=== PATIENT | male | born 1945 | race Caucasian/White ===

== ENCOUNTER 2016-10-07 13:46 | Outpatient (CLI) | payer MEDICARE | END 2016-10-07 13:47 | disposition home or self-care (01) | LOC: NAV LAB 13:46 | PROVIDERS: ATTEND Family Medicine | DX: Z11.59 Encounter for screening for other viral diseases (principal) | CPT/HCPCS: 86803 ==

== ENCOUNTER 2021-03-18 15:18 | Inpatient (IN) | payer MEDICARE ==
[2021-03-18] MEDS ORDERED: BETAMETHASONE 0.1% TOP PRN (21:38)
[2021-03-18] MEDS ORDERED: Enoxaparin Sodium 40 MG/0.4 ML SYRINGE SC SCH (21:45)
[2021-03-18] MEDS: oxyCODONE 5 MG TAB PO PRN (22:15)
[2021-03-18] MEDS: Enoxaparin Sodium 40 MG/0.4 ML SYRINGE SC SCH (22:18)
[2021-03-19] MEDS: Acetaminophen 500 MG TAB PO PRN ×2 (01:15→11:10)
[2021-03-19] MEDS: oxyCODONE 5 MG TAB PO PRN ×3 (04:03→20:48)
[2021-03-19 05:51] LABS: ALT (SGPT) 25 U/L (8-55); AST (SGOT) 39 U/L (5-34); Albumin 3.2 g/dL (3.4-4.8); Alkaline Phosphatase 58 U/L (40-110); Anion Gap 14 mmol/L (10-20); BUN (Urea Nitrogen) 14 mg/dL (8.4-25.7); Bilirubin, Total 0.7 mg/dL (0.2-1.2); Calc. Creatinine Clearance 110 mL/min (70-130); Carbon Dioxide 27 mmol/L (23-31); Chloride 100 mmol/L (98-107); Globulin 2.1 g/dL (2.4-3.5); Glucose 101 mg/dL (83-110); Potassium 3.7 mmol/L (3.5-5.1); Protein, Total 5.3 g/dL (5.8-8.1); Sodium 137 mmol/L (136-145)
[2021-03-19 06:06] LABS: Mean Corpuscular Hemoglobin 29.5 pg (27.0-31.0); Mean Corpuscular Volume 92.1 fL (78.0-98.0); Mean Platelet Volume 7.3 fL (7.4-10.4); Platelet Count 293 thou/uL (130-400); RBC Distribution Width 12.1 % (11.5-14.5); Red Blood Cell (RBC) Count 3.06 mill/uL (4.70-6.10); White Blood Cell (WBC) Count 8.4 thou/uL (4.8-10.8)
[2021-03-19 06:07] LABS: Anisocytosis SLIGHT = 6-15 cells (100X) (0-5/hpf); Band 6 % (5-11); Hypochromia SLIGHT = 6-15 cells (100X) (0-5/hpf); Lymphocytes 24 % (21-51); MDiff Complete? YES; Metamyelocyte 1 % (0-0); Monocytes 8 % (0-10); Neutrophil 61 % (42-75); Platelet Morphology Comment Appears Adequate
[2021-03-19] MEDS ORDERED: oxyCODONE 5 MG TAB PO SCH (06:30)
[2021-03-19] MEDS ORDERED: Losartan Potassium 50 MG TAB PO SCH (09:00)
[2021-03-19] MEDS: Atorvastatin Calcium 10 MG TAB PO SCH (09:09)
[2021-03-19] MEDS: Amlodipine 5 MG TAB PO SCH (09:09)
[2021-03-19] MEDS: Calcium Carbonate 600 MG + Vit D TAB PO SCH ×2 (09:09→16:58)
[2021-03-19] MEDS: traMADol HCl 50 MG TAB PO PRN (11:10)
[2021-03-19] MEDS: Losartan Potassium 50 MG TAB PO SCH (20:48)
[2021-03-19] MEDS ORDERED: SENNOSIDES 8.6 MG PO SCH (21:00)
[2021-03-19] MEDS ORDERED: Enoxaparin Sodium 40 MG/0.4 ML SYRINGE SC SCH (21:45)
[2021-03-19] MEDS ORDERED: Senokot S 8.6-50 MG TAB PO SCH (22:00)
[2021-03-19] MEDS: Enoxaparin Sodium 40 MG/0.4 ML SYRINGE SC SCH (22:13)
[2021-03-19] MEDS: Senokot S 8.6-50 MG TAB PO SCH (22:14)
[2021-03-20] MEDS: Amlodipine 5 MG TAB PO SCH (10:39)
[2021-03-20] MEDS: Atorvastatin Calcium 10 MG TAB PO SCH (10:39)
[2021-03-20] MEDS: Calcium Carbonate 600 MG + Vit D TAB PO SCH ×2 (10:39→16:40)
[2021-03-20] MEDS: oxyCODONE 5 MG TAB PO PRN ×2 (11:31→19:23)
[2021-03-20] MEDS: Acetaminophen 500 MG TAB PO PRN (16:40)
[2021-03-20] MEDS: traMADol HCl 50 MG TAB PO PRN (16:41)
[2021-03-20] MEDS: Enoxaparin Sodium 40 MG/0.4 ML SYRINGE SC SCH (21:03)
[2021-03-20] MEDS: Senokot S 8.6-50 MG TAB PO SCH (21:04)
[2021-03-20] MEDS: Losartan Potassium 50 MG TAB PO SCH (21:04)
[2021-03-21] MEDS: oxyCODONE 5 MG TAB PO PRN ×4 (00:25→21:27)
[2021-03-21] MEDS: Amlodipine 5 MG TAB PO SCH (09:38)
[2021-03-21] MEDS: Atorvastatin Calcium 10 MG TAB PO SCH (09:40)
[2021-03-21] MEDS: Calcium Carbonate 600 MG + Vit D TAB PO SCH ×2 (09:41→18:14)
[2021-03-21] MEDS: Milk Of Magnesia 30 ML UDCUP PO PRN (18:14)
[2021-03-21] MEDS: traMADol HCl 50 MG TAB PO PRN (20:38)
[2021-03-21] MEDS: Enoxaparin Sodium 40 MG/0.4 ML SYRINGE SC SCH (20:40)
[2021-03-21] MEDS: Losartan Potassium 50 MG TAB PO SCH (20:41)
[2021-03-21] MEDS: Senokot S 8.6-50 MG TAB PO SCH (20:41)
[2021-03-22] MEDS: oxyCODONE 5 MG TAB PO PRN ×4 (04:24→22:36)
[2021-03-22 05:30] LABS: #Basophils 0.1 thou/uL (0.0-0.2); #Eosinphils 0.3 thou/uL (0.0-0.7); #Lymphocytes 1.4 thou/uL (1.20-3.40); #Neutrophils 4.3 thou/uL (1.40-6.50); %Basophils 1.2 % (0.0-1.0); %Eosinophils 4.5 % (0.0-10.0); %Lymphocytes 19.5 % (21.0-51.0); %Monocytes 13.9 % (0.0-10.0); %Neutrophils 60.8 % (42.0-75.0); Hemoglobin 9.6 g/dL (14.0-18.0); Mean Corpuscular HGB CONC 33.3 g/dL (32.0-36.0); Mean Corpuscular Hemoglobin 30.5 pg (27.0-31.0); Mean Corpuscular Volume 91.7 fL (78.0-98.0); Mean Platelet Volume 7.2 fL (7.4-10.4); Platelet Count 393 thou/uL (130-400); RBC Distribution Width 12.6 % (11.5-14.5); Red Blood Cell (RBC) Count 3.13 mill/uL (4.70-6.10)
[2021-03-22 05:40] LABS: Anion Gap 13 mmol/L (10-20); BUN (Urea Nitrogen) 15 mg/dL (8.4-25.7); Calc. Creatinine Clearance 107 mL/min (70-130); Calcium 8.1 mg/dL (7.8-10.44); Carbon Dioxide 29 mmol/L (23-31); Chloride 100 mmol/L (98-107); Glucose 107 mg/dL (83-110); Potassium 3.9 mmol/L (3.5-5.1); Sodium 138 mmol/L (136-145)
[2021-03-22] MEDS: Amlodipine 5 MG TAB PO SCH (08:41)
[2021-03-22] MEDS: Calcium Carbonate 600 MG + Vit D TAB PO SCH ×2 (08:43→16:59)
[2021-03-22] MEDS: Atorvastatin Calcium 10 MG TAB PO SCH (08:44)
[2021-03-22] MEDS: Milk Of Magnesia 30 ML UDCUP PO PRN (08:55)
[2021-03-22] MEDS: traMADol HCl 50 MG TAB PO PRN (12:38)
[2021-03-22] MEDS: Acetaminophen 500 MG TAB PO PRN ×2 (12:39→22:37)
[2021-03-22] MEDS: Losartan Potassium 50 MG TAB PO SCH (20:52)
[2021-03-22] MEDS: Enoxaparin Sodium 40 MG/0.4 ML SYRINGE SC SCH (20:52)
[2021-03-22] MEDS: Senokot S 8.6-50 MG TAB PO SCH (20:52)
[2021-03-23] MEDS: Calcium Carbonate 600 MG + Vit D TAB PO SCH ×2 (08:51→16:52)
[2021-03-23] MEDS: Amlodipine 5 MG TAB PO SCH (08:51)
[2021-03-23] MEDS: Atorvastatin Calcium 10 MG TAB PO SCH (08:51)
[2021-03-23] MEDS: Acetaminophen 500 MG TAB PO PRN (12:10)
[2021-03-23] MEDS: oxyCODONE 5 MG TAB PO PRN ×2 (15:36→21:35)
[2021-03-23] MEDS: Losartan Potassium 50 MG TAB PO SCH (21:32)
[2021-03-23] MEDS: Enoxaparin Sodium 40 MG/0.4 ML SYRINGE SC SCH (21:32)
[2021-03-23] MEDS: Senokot S 8.6-50 MG TAB PO SCH (21:32)
[2021-03-23] MEDS: traMADol HCl 50 MG TAB PO PRN (22:53)
[2021-03-24] MEDS: oxyCODONE 5 MG TAB PO PRN ×2 (05:57→21:51)
[2021-03-24] MEDS: Calcium Carbonate 600 MG + Vit D TAB PO SCH ×2 (08:51→16:48)
[2021-03-24] MEDS: Amlodipine 5 MG TAB PO SCH (08:52)
[2021-03-24] MEDS: Atorvastatin Calcium 10 MG TAB PO SCH (08:52)
[2021-03-24] MEDS: Acetaminophen 500 MG TAB PO PRN (10:49)
[2021-03-24] MEDS ORDERED: Betamethasone Val 0.1% OINT 15 GM TUBE TOP PRN (12:00)
[2021-03-24] MEDS: traMADol HCl 50 MG TAB PO PRN (17:00)
[2021-03-24] MEDS: Senokot S 8.6-50 MG TAB PO SCH (20:59)
[2021-03-24] MEDS: Enoxaparin Sodium 40 MG/0.4 ML SYRINGE SC SCH (20:59)
[2021-03-24] MEDS: Losartan Potassium 50 MG TAB PO SCH (21:00)
[2021-03-25] MEDS: oxyCODONE 5 MG TAB PO PRN ×3 (07:23→22:54)
[2021-03-25] MEDS: Calcium Carbonate 600 MG + Vit D TAB PO SCH ×2 (08:51→16:56)
[2021-03-25] MEDS: Atorvastatin Calcium 10 MG TAB PO SCH (08:52)
[2021-03-25] MEDS: Amlodipine 5 MG TAB PO SCH (08:52)
[2021-03-25] MEDS: traMADol HCl 50 MG TAB PO PRN ×2 (12:15→23:49)
[2021-03-25] MEDS: Acetaminophen 500 MG TAB PO PRN (12:16)
[2021-03-25] MEDS: Enoxaparin Sodium 40 MG/0.4 ML SYRINGE SC SCH (21:57)
[2021-03-25] MEDS: Senokot S 8.6-50 MG TAB PO SCH (21:58)
[2021-03-25] MEDS: Losartan Potassium 50 MG TAB PO SCH (21:58)
[2021-03-26] MEDS: Calcium Carbonate 600 MG + Vit D TAB PO SCH ×2 (08:53→17:15)
[2021-03-26] MEDS: Atorvastatin Calcium 10 MG TAB PO SCH (08:53)
[2021-03-26] MEDS: Amlodipine 5 MG TAB PO SCH (08:53)
[2021-03-26] MEDS: oxyCODONE 5 MG TAB PO PRN ×3 (09:21→21:48)
[2021-03-26] MEDS: Milk Of Magnesia 30 ML UDCUP PO PRN (09:22)
[2021-03-26] MEDS: Senokot S 8.6-50 MG TAB PO SCH (21:47)
[2021-03-26] MEDS: Losartan Potassium 50 MG TAB PO SCH (21:47)
[2021-03-26] MEDS: Enoxaparin Sodium 40 MG/0.4 ML SYRINGE SC SCH (21:47)
[2021-03-27] MEDS: traMADol HCl 50 MG TAB PO PRN ×2 (00:28→23:37)
[2021-03-27] MEDS: Calcium Carbonate 600 MG + Vit D TAB PO SCH ×2 (08:32→17:19)
[2021-03-27] MEDS: Atorvastatin Calcium 10 MG TAB PO SCH (08:32)
[2021-03-27] MEDS: Amlodipine 5 MG TAB PO SCH (08:32)
[2021-03-27] MEDS: oxyCODONE 5 MG TAB PO PRN ×2 (10:20→20:17)
[2021-03-27] MEDS: Enoxaparin Sodium 40 MG/0.4 ML SYRINGE SC SCH (20:16)
[2021-03-27] MEDS: Losartan Potassium 50 MG TAB PO SCH (20:18)
[2021-03-27] MEDS: Senokot S 8.6-50 MG TAB PO SCH (20:19)
[2021-03-28] MEDS: oxyCODONE 5 MG TAB PO PRN ×2 (01:51→20:30)
[2021-03-28] MEDS: Calcium Carbonate 600 MG + Vit D TAB PO SCH ×2 (09:01→17:36)
[2021-03-28] MEDS: Atorvastatin Calcium 10 MG TAB PO SCH (09:02)
[2021-03-28] MEDS: Amlodipine 5 MG TAB PO SCH (09:03)
[2021-03-28] MEDS: traMADol HCl 50 MG TAB PO PRN ×2 (10:21→17:54)
[2021-03-28] MEDS: Acetaminophen 500 MG TAB PO PRN ×2 (10:22→17:56)
[2021-03-28] MEDS: Losartan Potassium 50 MG TAB PO SCH (20:31)
[2021-03-28] MEDS: Enoxaparin Sodium 40 MG/0.4 ML SYRINGE SC SCH (20:31)
[2021-03-28] MEDS: Senokot S 8.6-50 MG TAB PO SCH (20:31)
[2021-03-29] MEDS: oxyCODONE 5 MG TAB PO PRN ×2 (02:59→20:24)
[2021-03-29 03:29] VITALS: BMI 27.6
[2021-03-29] MEDS: Amlodipine 5 MG TAB PO SCH (08:11)
[2021-03-29] MEDS: Calcium Carbonate 600 MG + Vit D TAB PO SCH ×2 (08:11→17:34)
[2021-03-29] MEDS: Atorvastatin Calcium 10 MG TAB PO SCH (08:12)
[2021-03-29] MEDS: traMADol HCl 50 MG TAB PO PRN ×2 (10:44→23:15)
[2021-03-29] MEDS: Enoxaparin Sodium 40 MG/0.4 ML SYRINGE SC SCH (20:24)
[2021-03-29] MEDS: Senokot S 8.6-50 MG TAB PO SCH (20:25)
[2021-03-29] MEDS: Losartan Potassium 50 MG TAB PO SCH (20:25)
[2021-03-30] MEDS: Acetaminophen 500 MG TAB PO PRN ×2 (01:32→11:47)
[2021-03-30] MEDS: Atorvastatin Calcium 10 MG TAB PO SCH (08:48)
[2021-03-30] MEDS: Amlodipine 5 MG TAB PO SCH (08:48)
[2021-03-30] MEDS: Calcium Carbonate 600 MG + Vit D TAB PO SCH ×2 (08:49→16:31)
[2021-03-30] MEDS: traMADol HCl 50 MG TAB PO PRN (11:39)
[2021-03-30] MEDS: Enoxaparin Sodium 40 MG/0.4 ML SYRINGE SC SCH (21:00)
[2021-03-30] MEDS: Losartan Potassium 50 MG TAB PO SCH (21:01)
[2021-03-30] MEDS: Senokot S 8.6-50 MG TAB PO SCH (21:01)
[2021-03-30] MEDS: oxyCODONE 5 MG TAB PO PRN (22:08)
[2021-03-31] MEDS: traMADol HCl 50 MG TAB PO PRN ×2 (00:01→23:21)
[2021-03-31 05:31] LABS: #Basophils 0.1 thou/uL (0.0-0.2); #Eosinphils 0.3 thou/uL (0.0-0.7); #Lymphocytes 1.5 thou/uL (1.20-3.40); #Neutrophils 3.6 thou/uL (1.40-6.50); %Basophils 1.9 % (0.0-1.0); %Eosinophils 4.3 % (0.0-10.0); %Lymphocytes 23.4 % (21.0-51.0); %Monocytes 14.6 % (0.0-10.0); %Neutrophils 55.8 % (42.0-75.0); Mean Corpuscular HGB CONC 30.9 g/dL (32.0-36.0); Mean Corpuscular Hemoglobin 29.8 pg (27.0-31.0); Mean Corpuscular Volume 96.4 fL (78.0-98.0); Mean Platelet Volume 7.3 fL (7.4-10.4); Platelet Count 346 thou/uL (130-400); RBC Distribution Width 15.3 % (11.5-14.5); White Blood Cell (WBC) Count 6.5 thou/uL (4.8-10.8)
[2021-03-31 05:47] LABS: Anion Gap 12 mmol/L (10-20); BUN (Urea Nitrogen) 14 mg/dL (8.4-25.7); Calc. Creatinine Clearance 96 mL/min (70-130); Calcium 8.4 mg/dL (7.8-10.44); Carbon Dioxide 28 mmol/L (23-31); Chloride 101 mmol/L (98-107); Glucose 99 mg/dL (83-110); Potassium 4.4 mmol/L (3.5-5.1); Sodium 137 mmol/L (136-145)
[2021-03-31] MEDS: Calcium Carbonate 600 MG + Vit D TAB PO SCH ×2 (09:33→16:43)
[2021-03-31] MEDS: Atorvastatin Calcium 10 MG TAB PO SCH (09:34)
[2021-03-31] MEDS: Amlodipine 5 MG TAB PO SCH (09:34)
[2021-03-31] MEDS: Acetaminophen 500 MG TAB PO PRN ×2 (09:36→23:22)
[2021-03-31] MEDS ORDERED: Melatonin 3 MG TAB PO SCH (21:00)
[2021-03-31] MEDS: Senokot S 8.6-50 MG TAB PO SCH (21:38)
[2021-03-31] MEDS: Enoxaparin Sodium 40 MG/0.4 ML SYRINGE SC SCH (21:38)
[2021-03-31] MEDS: Losartan Potassium 50 MG TAB PO SCH (21:38)
[2021-03-31] MEDS: oxyCODONE 5 MG TAB PO PRN (21:39)
[2021-04-01] MEDS: traMADol HCl 50 MG TAB PO PRN ×2 (05:33→13:02)
[2021-04-01] MEDS: Acetaminophen 500 MG TAB PO PRN ×2 (05:34→13:03)
[2021-04-01] MEDS: oxyCODONE 5 MG TAB PO PRN ×2 (07:34→20:20)
[2021-04-01] MEDS: Calcium Carbonate 600 MG + Vit D TAB PO SCH ×2 (07:36→17:27)
[2021-04-01] MEDS: Amlodipine 5 MG TAB PO SCH (07:37)
[2021-04-01] MEDS: Atorvastatin Calcium 10 MG TAB PO SCH (07:38)
[2021-04-01] MEDS: traZODone HCl 50 MG TAB PO SCH (20:20)
[2021-04-01] MEDS: Losartan Potassium 50 MG TAB PO SCH (20:20)
[2021-04-01] MEDS: Enoxaparin Sodium 40 MG/0.4 ML SYRINGE SC SCH (20:20)
[2021-04-01] MEDS: Senokot S 8.6-50 MG TAB PO SCH (20:20)
[2021-04-02] MEDS: Atorvastatin Calcium 10 MG TAB PO SCH (09:05)
[2021-04-02] MEDS: Amlodipine 5 MG TAB PO SCH (09:05)
[2021-04-02] MEDS: Calcium Carbonate 600 MG + Vit D TAB PO SCH ×2 (09:05→16:51)
[2021-04-02] MEDS: traMADol HCl 50 MG TAB PO PRN ×2 (09:57→20:53)
[2021-04-02] MEDS: Acetaminophen 500 MG TAB PO PRN ×2 (09:57→20:52)
[2021-04-02] MEDS: Enoxaparin Sodium 40 MG/0.4 ML SYRINGE SC SCH (20:50)
[2021-04-02] MEDS: traZODone HCl 50 MG TAB PO SCH (20:50)
[2021-04-02] MEDS: Senokot S 8.6-50 MG TAB PO SCH (20:50)
[2021-04-02] MEDS: Losartan Potassium 50 MG TAB PO SCH (20:50)
[2021-04-02] MEDS: oxyCODONE 5 MG TAB PO PRN (23:40)
[2021-04-03] MEDS: Calcium Carbonate 600 MG + Vit D TAB PO SCH (08:42)
[2021-04-03] MEDS: Atorvastatin Calcium 10 MG TAB PO SCH (08:42)
[2021-04-03] MEDS: Amlodipine 5 MG TAB PO SCH (08:42)
[2021-04-03] MEDS: Acetaminophen 500 MG TAB PO PRN (08:46)
[2021-04-03] MEDS: traMADol HCl 50 MG TAB PO PRN (08:47)
[2021-04-03 09:18] VITALS: BP 152/83; TEMP 97.6
[2021-04-03 16:54] LABS: Bilirubin Small (Negative); Blood, Urine Large (Negative); Glucose, Urine (Dipstick) Negative (Negative); Ketone, Urine Trace mg/dL (Negative); Leukocyte Small (Negative); Nitrite Positive (Negative); Protein, Urine (Dipstick) > or equal to 300 mg/dL (Neg-Trace); Specific Gravity, Urine 1.025 (1.005-1.030)
[2021-04-03 17:28] LABS: Bacteria/HPF 4+ HPF (None Seen); Clarity Hazy (Clear); Squamous Epithelial 0-3 HPF (0-3); WBC/HPF Greater Than 50 HPF (0-3)
== END 2021-04-03 12:35 | disposition home or self-care (01) | DRG 560 ==
LOC: NAV ACUTE 19:40 → UNDOADMIN 19:57 → NAV ACUTE 03-27 16:27
PROVIDERS: ADMIT Internal Medicine; ATTEND Internal Medicine
DX: S42.402D Unspecified fracture of lower end of left humerus, subsequent encounter for fracture with routine healing (principal); D62 Acute posthemorrhagic anemia; S72.8X2D Other fracture of left femur, subsequent encounter for closed fracture with routine healing; W19.XXXD Unspecified fall, subsequent encounter; E78.5 Hyperlipidemia, unspecified; I10 Essential (primary) hypertension; K21.9 Gastro-esophageal reflux disease without esophagitis; F41.9 Anxiety disorder, unspecified; D63.8 Anemia in other chronic diseases classified elsewhere; F32.9 Major depressive disorder, single episode, unspecified; K59.00 Constipation, unspecified; G47.00 Insomnia, unspecified; R30.0 Dysuria; Z90.49 Acquired absence of other specified parts of digestive tract; Z88.0 Allergy status to penicillin; Z88.1 Allergy status to other antibiotic agents; Z91.040 Latex allergy status; Z87.891 Personal history of nicotine dependence
CPT/HCPCS: 80048; 80053; 81003; 81015; 85025; 87077; 87086; 87186; J1650

== ENCOUNTER 2021-11-04 17:50 | Emergency (ER) | payer MEDICARE ==
[2021-11-04 18:25] LABS: #Basophils 0.1 thou/uL (0.0-0.2); #Monocytes 0.8 thou/uL (0.11-0.59); #Neutrophils 6.1 thou/uL (1.40-6.50); %Basophils 0.8 % (0.0-1.0); %Eosinophils 0.3 % (0.0-10.0); %Lymphocytes 12.7 % (21.0-51.0); %Monocytes 10.3 % (0.0-10.0); %Neutrophils 75.8 % (42.0-75.0); Hemoglobin 14.3 g/dL (14.0-18.0); Mean Corpuscular HGB CONC 33.6 g/dL (32.0-36.0); Mean Corpuscular Hemoglobin 30.4 pg (27.0-31.0); Mean Corpuscular Volume 90.5 fL (78.0-98.0); Mean Platelet Volume 7.2 fL (7.4-10.4); Platelet Count 271 thou/uL (130-400); RBC Distribution Width 11.1 % (11.5-14.5); Red Blood Cell (RBC) Count 4.69 mill/uL (4.70-6.10); White Blood Cell (WBC) Count 8.1 thou/uL (4.8-10.8)
[2021-11-04 18:25] LABS: Bilirubin Negative (Negative); Blood, Urine Negative (Negative); Glucose, Urine (Dipstick) Negative (Negative); Ketone, Urine 40 mg/dL (Negative); Leukocyte Negative (Negative); Nitrite Negative (Negative); Protein, Urine (Dipstick) 30 mg/dL (Neg-Trace); Specific Gravity, Urine 1.015 (1.005-1.030); Urobilinogen 0.2 mg/dL (Less than 2); pH, Urine 7.5 (5.0-9.0)
[2021-11-04] MEDS ORDERED: diphenhydrAMINE 25 MG CAP ONE (18:35)
[2021-11-04 18:43] LABS: Clarity Hazy (Clear)
[2021-11-04 18:44] LABS: ALT (SGPT) 22 U/L (8-55); AST (SGOT) 25 U/L (5-34); Albumin 4.2 g/dL (3.4-4.8); Alkaline Phosphatase 122 U/L (40-110); Anion Gap 16 mmol/L (10-20); BUN (Urea Nitrogen) 11 mg/dL (8.4-25.7); Bilirubin, Total 0.6 mg/dL (0.2-1.2); Calc. Creatinine Clearance 0 mL/min (70-130); Calcium 8.9 mg/dL (7.8-10.44); Carbon Dioxide 26 mmol/L (23-31); Chloride 90 mmol/L (98-107); Globulin 2.4 g/dL (2.4-3.5); Glucose 110 mg/dL (83-110); Protein, Total 6.6 g/dL (5.8-8.1); Sodium 129 mmol/L (136-145)
[2021-11-04 18:47] LABS: RBC/HPF 0-3 HPF (0-3); Squamous Epithelial 0-3 HPF (0-3); WBC/HPF 0-3 HPF (0-3)
[2021-11-04] MEDS ORDERED: Sodium Chloride 0.9% 1,000 ML ONE (18:57)
[2021-11-04 19:11] LABS: Amphetamine Not Detected (NotDetected); Barbiturates Screen Not Detected (NotDetected); Benzodiazepine Screen Not Detected (NotDetected); Cocaine Metabolite Screen Not Detected (NotDetected); Medtox Control Line Valid? VALID (VALID); Methadone Not Detected (NotDetected); Methamphetamine Not Detected (NotDetected); Opiate Screen Not Detected (NotDetected); Oxycodone Screen Not Detected (NotDetected); Phencyclidine (PCP) Not Detected (NotDetected); THC/Cannabinoid Screen Detected (NotDetected); Tricyclic Screen Not Detected (NotDetected)
== END 2021-11-04 19:43 | disposition home or self-care (01) ==
LOC: NAV ERS 17:50
DX: I49.1 Atrial premature depolarization (principal); E87.6 Hypokalemia; E87.1 Hypo-osmolality and hyponatremia; E78.5 Hyperlipidemia, unspecified; E78.00 Pure hypercholesterolemia, unspecified; I10 Essential (primary) hypertension; Z79.899 Other long term (current) drug therapy
CPT/HCPCS: 71045; 80053; 80306; 81003; 81015; 84443; 84484; 85025; 93005; J7050